=== PATIENT | male | born 1965 | race Caucasian/White ===

== ENCOUNTER 2024-01-14 12:32 | Emergency (ER) | payer OTHER, SELFPAY ==
--- NOTE | ~2024-01-14 | CT_ITS ---
EXAMINATION: CT knee LT wo con DATE: 01/14/2024 13:50 INDICATION: Left knee pain. TECHNIQUE: Computed tomography (CT) of the left knee was performed without intravenous contrast. Auto mated exposure control and iterative reconstruction technique were employed. The dose-length product was 659.76 mGy-cm. COMPARISON: Left knee radiographs 01/14/24 FINDINGS: There is varus angulation at the knee. No acute fracture. There is advanced osteoarthritis of the medial and lateral compartments including bone volume loss. There is severe osteoarthritis of patellofemoral compartment. There is a large knee joint effusion with loose bodies. There is a small Acuna's cyst. IMPRESSION: 1. Advanced left knee osteoarthritis. 2. Large left knee joint effusion with loose bodies. 3. Small Acuna's cyst. Reviewed, dictated and finalized at location A.
--- NOTE | ~2024-01-14 | XR_ITS ---
XR knee LT 3V 01/14/2024 13:23 Indication: Left knee pain Procedure: 3 views left knee Comparison: No prior studies for comparison. Findings: There is severe osteoarthritis of the left knee. Large joint effusion. There is deformity o f the medial tibial plateau with age-indeterminate plateau fracture at this location. There is varus angulation. There is loose body medial to the tibial plateau. Impression: 1: Age-indeterminate medial tibial plateau fracture with associated remodeling. 2: Large joint effusion. 3: Severe osteoarthritis of the left knee. Reviewed, dictated and finalized at location B. Impression: 1: Age-indeterminate medial tibial plateau fracture with associated remodeling. 2: Large joint effusion. 3: Severe osteoarthritis of the left knee.
[2024-01-14 12:35] VITALS: BP 161/63; PULSE 74; RESP 17; TEMP 36.9; O2SAT 100
--- NOTE | 2024-01-14 13:11 | ED.LOWEXIN ---
HPI - Extremity Injury (Lower) General Chief Complaint: Extremity Injury, Lower Stated Complaint: left knee pain Time Seen by Provider: 01/14/24 12:50 History of Present Illness HPI Narrative: 58-year-old male presents to the emergency room for evaluation of left knee pain. Patient has a history of chronic knee pain osteoarthritis. states he attempted to step up onto a stair, twisting his knee and heard a crack . Patient was unable to bear weight following the injury. Patient applied Brayden bandage after the injury and has been using a cane. Related Data Allergies Allergy/AdvReac Type Severity Reaction Status Date / Time No Known Allergies Allergy Verified 01/14/24 13:09 Review of Systems Review of Systems: ROS unremarkable except for noted in HPI Exam Narrative: GENERAL: Well-appearing, well-nourished, no physical limitations, and in no acute distress. HEAD: Normocephalic, atraumatic. EYES: Conjunctivae normal, PERRLA and EOMI. CHEST: Clear to auscultation. No respiratory distress. No wheezes rales or rhonchi. HEART: Regular rate and rhythm. No murmur heard. Normal peripheral pulses. EXTREMITIES: Left knee: chronic bony abnormality, no obvious STS, diffuse TTP. No ecchymosis. LROM in all cantor of movement SKIN: Warm, dry, no rash. No noted wounds NEURO: No focal deficits. Alert and oriented x3. MAEW. CN's II-XI intact bilaterally PSYCH: Cooperative. Normal mood and affect. Course Vital Signs Vital signs: Vital Signs Temperature 36.9 C 01/14/24 12:35 Pulse Rate 74 01/14/24 12:35 Respiratory Rate 17 01/14/24 12:35 Blood Pressure 161/63 H 01/14/24 12:35 Pulse Oximetry 100 01/14/24 12:35 Oxygen Delivery Room Air 01/14/24 12:35 Temperature 36.9 C 01/14/24 12:35 Pulse Rate 74 01/14/24 12:35 Respiratory Rate 17 01/14/24 12:35 Blood Pressure 161/63 H 01/14/24 12:35 Pulse Oximetry 100 01/14/24 12:35 Oxygen Delivery Room Air 01/14/24 12:35 MDM - Extremity Injury (Lower) Imaging Data Radiologist's impression: Impressions Knee X-Ray 01/14/24 13:28 Impression: 1: Age-indeterminate medial tibial plateau fracture with associated remodeling. 2: Large joint effusion. 3: Severe osteoarthritis of the left knee. Knee CT 01/14/24 14:08 IMPRESSION: 1. Advanced left knee osteoarthritis. 2. Large left knee joint effusion with loose bodies. 3. Small Acuna's cyst. Discharge Plan Discharge Clinical Impression: Left knee sprain Patient Disposition: Home, Self-Care Condition: Stable Instructions: Antibiotic Form, Knee Sprain (ED) Prescriptions: New naproxen 500 mg tablet 500 mg PO BID Qty: 30 0RF Follow-up/Referrals: PHYSICIAN,MATERIAL ENGINEER [Non-Staff] - Manuel López MD [Physician] - Time of Disposition: 14:39
[2024-01-14 14:56] VITALS: PULSE 84; RESP 20; O2SAT 96
== END 2024-01-14 14:57 | disposition home or self-care (01) ==
PROVIDERS: Emergency Provider Nurse Practitioner Family
DX: S83.92XA Sprain of unspecified site of left knee, initial encounter (principal); M17.12 Unilateral primary osteoarthritis, left knee; M71.22 Synovial cyst of popliteal space [Baker], left knee; X50.9XXA Other and unspecified overexertion or strenuous movements or postures, initial encounter
CPT/HCPCS: 73562; 73700; 99284